=== PATIENT | male | born 1965 | race Caucasian/White ===

== ENCOUNTER → 2024-01-22 | Outpatient (CLI) | payer OTHER ==
--- NOTE | 2024-01-23 07:53 | US ---
EXAMINATION TYPE: US scrotum with doppler. Grayscale and color Doppler Duplex imaging performed of t he scrotum. DATE OF EXAM: 01/22/2024 COMPARISON: NONE CLINICAL INDICATION: Male, 58 years old with history of N50.819 TESTICULAR PAIN, UNSPECIFIED; Right t esticle swelling x 4-5 months; Patient denies injury and any other signs and symptoms EXAM MEASUREMENTS: TESTICLES: Right Testicle: 4.6 x 2.9 x 2.8 cm Left Testicle: 4.1 x 1.9 x 2.9 cm EPIDIDYMIS HEAD: Right Epididymis: 1.1 x 1.6 x 1.8 cm Left Epididymis: 1.7 x 0.4 x 1.5 cm Doppler performed to assess for testicular vascularity; good bilateral color flow and waveforms are s een. There is no evidence of testicular torsion. Presence of hydroceles: Right Presence of varicoceles: Right Cystic structure adjacent to left epididymus IMPRESSION: 1. No intratesticular mass or testicular torsion. 2. Large right hydrocele. 3. Left epididymal cyst
== END | disposition home or self-care (01) ==
LOC: RADUSWWP 15:53
PROVIDERS: ATTEND Family Medicine
DX: N43.3 Hydrocele, unspecified (principal); N50.3 Cyst of epididymis; N50.89 Other specified disorders of the male genital organs; N50.819 Testicular pain, unspecified
CPT/HCPCS: 76870; 93975